=== PATIENT | male | born 2000 | race Caucasian/White ===

== ENCOUNTER 2023-07-07 09:26 | Outpatient (CLI) | payer OTHER ==
[2023-07-07] MEDS ORDERED: Iopamidol 300 61% 100 ML VIAL FS ONE (14:08)
== END 2023-07-07 09:27 | disposition home or self-care (01) ==
LOC: CSHCT 09:26
PROVIDERS: ATTEND Physician Assistant Medical
DX: K58.9 Irritable bowel syndrome, unspecified (principal); K62.5 Hemorrhage of anus and rectum; R10.30 Lower abdominal pain, unspecified; K64.8 Other hemorrhoids; K63.9 Disease of intestine, unspecified
CPT/HCPCS: 74177; Q9967

== ENCOUNTER 2023-08-23 16:13 | Emergency (ER) | payer OTHER ==
[2023-08-23] MEDS ORDERED: Ibuprofen 200 MG TAB ONE (16:40)
[2023-08-23 17:18] LABS: Bilirubin Neg (Negative); Blood, Urine Negative (Negative); Clarity Clear (Clear); Glucose, Urine (Dipstick) Normal (Negative); Ketone, Urine Negative (Negative); Leukocyte Negative (Negative); Nitrite Negative (Negative); Protein, Urine (Dipstick) Negative (Neg-Trace); Urobilinogen Normal mg/dL (Less than 2)
[2023-08-23 17:43] LABS: Bacteria/HPF Rare-Few HPF (None Seen); CAUTI Indications for Culture Pelvic or flank pain; RBC/HPF None Seen HPF (0-3); Squamous Epithelial 0-3 HPF (0-3); Urine Culture Reflex No No; WBC/HPF None Seen HPF (0-3)
[2023-08-24 04:33] LABS: Chlam.trachomatis by PCR,Urine Not Detected (NotDetected); GC N.gonorrhoeae PCR,UrineVOID Not Detected (NotDetected)
== END 2023-08-23 18:20 | disposition home or self-care (01) ==
LOC: CSHERS 16:13
DX: N50.812 Left testicular pain (principal)
CPT/HCPCS: 76870; 81001; 87491; 87591; 93976